=== PATIENT | male | born 1965 | race Caucasian/White ===

== ENCOUNTER → 2020-05-19 | Outpatient (CLI) | payer BC, OTHER | END | disposition home or self-care (01) | LOC: XYW 10:24 | PROVIDERS: ATTEND Internal Medicine | DX: I08.0 Rheumatic disorders of both mitral and aortic valves (principal) | CPT/HCPCS: 93306 ==

== ENCOUNTER → 2020-08-13 | Outpatient (CLI) | payer BC ==
[2020-08-13 11:02] LABS: Free T4 (Free Thyroxine) 0.81 ng/dL (0.89-1.76); Prostate Specific Antigen 1.27 ng/mL (0.0-4.0)
[2020-08-13 11:03] LABS: Free T3 3.51 pg/mL (2.3-4.2)
== END | disposition home or self-care (01) ==
LOC: LAB 07:30
PROVIDERS: ATTEND Internal Medicine
DX: Z12.5 Encounter for screening for malignant neoplasm of prostate (principal); I10 Essential (primary) hypertension; E78.5 Hyperlipidemia, unspecified; R00.2 Palpitations; R79.89 Other specified abnormal findings of blood chemistry
CPT/HCPCS: 36415; 84153; 84439; 84443; 84481; 85652; 86141

== ENCOUNTER → 2020-09-02 | Outpatient (CLI) | payer BC ==
[~2020-09-02] VITALS: Ht 165.1 cm; Wt 97.5 kg
[~2020-09-02] MED LIST: ADENOSINE 82 MG in GIVE UN-DILUTED 0 ML IV STA; ASPI-543 PO; LISI-275 PO; OMEP20TA PO; ROSU20TA14 PO
== END | disposition home or self-care (01) ==
LOC: XY 10:35
PROVIDERS: ATTEND Internal Medicine
DX: I10 Essential (primary) hypertension (principal)
CPT/HCPCS: 78452; 93017; A9500; J0153

== ENCOUNTER → 2020-09-17 | Day surgery (SDC) | payer BC ==
[2020-09-13 14:50] LABS: Basophils # (auto) 0.1 10 ^3/uL (0-0.2); Basophils % (auto) 0.8 % (0.0-2.0); Eosinophils # (auto) 0.2 10 ^3/uL (0-0.8); Eosinophils % (auto) 2.6 % (0.0-7.0); Hemoglobin 14.9 g/dL (13.5-17.5); Lymphocytes # (auto) 1.8 10 ^3/uL (0.4-5.4); Lymphocytes % (auto) 24.4 % (10.0-50.0); Mean Corpuscular Hemoglobin 30.9 pg (28.0-32.0); Mean Corpuscular Hgb Conc. 33.9 g/dL (32.0-36.0); Mean Corpuscular Volume 91.2 fL (80.0-100.0); Monocytes # (auto) 0.7 10 ^3/uL (0-1.3); Neutrophils # (auto) 4.8 10 ^3/uL (1.6-8.6); Neutrophils % (auto) 63.2 % (37.0-80.0); Nucleated Red Blood Cells % 0.1 %; Platelet Count (auto) 241 10^3/uL (140-450); Red Blood Cells 4.82 10^6/uL (4.5-5.90); Red Cell Distribution Width 12.9 % (11.8-14.3); White Blood Cell 7.6 10^3/uL (4.4-10.8)
[2020-09-13 15:02] LABS: INR 1.03 (0.9-1.15); Partial Thromboplastin Time 28.5 sec (23.0-31.2)
[~2020-09-17] VITALS: Ht 165.1 cm; Wt 97.5 kg
[~2020-09-17] MED LIST changes: -ADENOSINE 82 MG in GIVE UN-DILUTED 0 ML IV STA; +SODIUM CHLORIDE LOCK 10 ML ONE; +diphenhdrAMINE HCL 50 MG/1 ML VL ONE
[2020-09-17] MEDS: fentaNYL CITRATE 100 MCG/2 ML VL ONE ×3 (14:09→14:15)
[2020-09-17] MEDS: MIDAZOLAM HCL 5 MG/ML-1ML VIAL ONE ×3 (14:09→14:15)
[2020-09-17 15:11] VITALS: BP 152/95
== END | disposition home or self-care (01) ==
LOC: GI 11:15
PROVIDERS: ATTEND Internal Medicine Gastroenterology
DX: R19.4 Change in bowel habit (principal); K57.30 Diverticulosis of large intestine without perforation or abscess without bleeding; K64.8 Other hemorrhoids; K21.9 Gastro-esophageal reflux disease without esophagitis; E66.9 Obesity, unspecified; Z68.35 Body mass index [BMI] 35.0-35.9, adult; Z20.828 Contact with and (suspected) exposure to other viral communicable diseases; Z79.82 Long term (current) use of aspirin; Z79.899 Other long term (current) drug therapy; Z88.0 Allergy status to penicillin; Z98.52 Vasectomy status
CPT/HCPCS: 36415; 45378; 85025; 85610; 85730; J1200; J2250; J3010; J7030; U0003; 99152

== ENCOUNTER → 2022-10-17 | Outpatient (CLI) | payer BC ==
[~2022-10-17] MED LIST changes: -SODIUM CHLORIDE LOCK 10 ML ONE; -diphenhdrAMINE HCL 50 MG/1 ML VL ONE
== END | disposition home or self-care (01) ==
LOC: LAB 09:55
PROVIDERS: ATTEND Internal Medicine
DX: M25.561 Pain in right knee (principal)
CPT/HCPCS: 36415; 84550; 85652

== ENCOUNTER → 2023-04-04 | Outpatient (CLI) | payer BC ==
[2023-04-04 08:24] LABS: Uric Acid 7.2 mg/dL (3.5-7.2)
== END | disposition home or self-care (01) ==
LOC: LAB 07:02
PROVIDERS: ATTEND Internal Medicine
DX: M25.561 Pain in right knee (principal); E78.5 Hyperlipidemia, unspecified
CPT/HCPCS: 36415; 80061; 82306; 84550

== ENCOUNTER → 2023-06-01 | Outpatient (CLI) | payer BC | END | disposition home or self-care (01) | LOC: LAB 10:25 | PROVIDERS: ATTEND Family Medicine | DX: L98.8 Other specified disorders of the skin and subcutaneous tissue (principal) | CPT/HCPCS: 88302 ==

== ENCOUNTER → 2024-09-05 | Outpatient (CLI) | payer BC ==
[2024-09-05 08:59] LABS: Basophils # (auto) 0.1 10 ^3/uL (0-0.2); Basophils % (auto) 0.8 % (0.0-2.0); Eosinophils # (auto) 0.2 10 ^3/uL (0-0.8); Eosinophils % (auto) 3.1 % (0.0-7.0); Hematocrit 45.3 % (41.0-53.0); Hemoglobin 16.2 g/dL (13.5-17.5); Lymphocytes # (auto) 1.8 10 ^3/uL (0.4-5.4); Lymphocytes % (auto) 24.8 % (10.0-50.0); Mean Corpuscular Hemoglobin 32.4 pg (28.0-32.0); Mean Corpuscular Hgb Conc. 35.7 g/dL (32.0-36.0); Mean Corpuscular Volume 90.6 fL (80.0-100.0); Monocytes # (auto) 0.6 10 ^3/uL (0-1.3); Monocytes % (auto) 8.9 % (0.0-12.0); Neutrophils # (auto) 4.6 10 ^3/uL (1.6-8.6); Neutrophils % (auto) 62.4 % (37.0-80.0); Platelet Count (auto) 277 10^3/uL (140-450); Red Cell Distribution Width 13.2 % (11.8-14.3); White Blood Cell 7.3 10^3/uL (4.4-10.8)
[2024-09-05 09:33] LABS: Erythrocyte Sedimentation Rate 9 mm/hr (0-20)
[2024-09-05 09:47] LABS: Alanine Aminotransferase 33 U/L (7-40); Albumin 4.5 g/dL (3.2-4.8); Alkaline Phosphatase 67 U/L (46-116); Anion Gap 8 (5-15); Aspartate Aminotransferase 15 U/L (13-40); Blood Urea Nitrogen 15 mg/dL (9-23); CRP High Sensitivity 0.52 mg/dL (<1.0); Carbon Dioxide 29 mmol/L (20-31); Chloride 105 mmol/L (98-107); Glucose 112 mg/dL (74-106); LDL Cholesterol 69 mg/dL (< 100); Potassium 3.6 mmol/L (3.5-5.1); Sodium 142 mmol/L (136-145); Triglycerides 141 mg/dL (< 150)
[2024-09-05 09:48] LABS: Bilirubin, Total 0.6 mg/dL (0.2-1.0); Cholesterol 118 mg/dL (< 200); HDL Cholesterol 35 mg/dL (40-59); Total Protein 7.3 g/dL (5.7-8.2)
[2024-09-05 10:56] LABS: Prostate Specific Antigen 1.77 ng/mL (0.0-4.0)
[2024-09-05 11:01] LABS: Folate (Folic Acid) 22.14 ng/mL (>5.38)
== END | disposition home or self-care (01) ==
LOC: LAB 08:11
PROVIDERS: ATTEND Internal Medicine
DX: E55.9 Vitamin D deficiency, unspecified (principal); M10.9 Gout, unspecified; E78.5 Hyperlipidemia, unspecified; I10 Essential (primary) hypertension; R31.9 Hematuria, unspecified
CPT/HCPCS: 36415; 80053; 80061; 82306; 82607; 82746; 83036; 84153; 84207; 84403; 84443; 85025; 85652; 86141

== ENCOUNTER 2024-10-28 07:36 | Day surgery (SDC) | payer BC ==
[2024-10-21 11:17] LABS: Urine Bacteria None Seen /hpf (None Seen)
[2024-10-21 11:49] LABS: Alanine Aminotransferase 40 U/L (7-40); Albumin 4.4 g/dL (3.2-4.8); Alkaline Phosphatase 71 U/L (46-116); Anion Gap 6 (5-15); Aspartate Aminotransferase 18 U/L (13-40); BUN/Creatinine Ratio 11.7 (10.0-20.0); Blood Urea Nitrogen 13 mg/dL (9-23); Calcium 9.7 mg/dL (8.7-10.4); Carbon Dioxide 30 mmol/L (20-31); Chloride 105 mmol/L (98-107); Glucose 103 mg/dL (74-106); INR 1.06 (0.9-1.15); Partial Thromboplastin Time 29.4 SEC (24.5-34.5); Potassium 3.6 mmol/L (3.5-5.1); Prothrombin Time 11.2 sec (9.3-11.8); Sodium 141 mmol/L (136-145)
[2024-10-21 11:50] LABS: Bilirubin, Total 0.5 mg/dL (0.2-1.0); Total Protein 7.1 g/dL (5.7-8.2)
[2024-10-21 12:01] LABS: Basophils # (auto) 0.1 10 ^3/uL (0-0.2); Basophils % (auto) 0.7 % (0.0-2.0); Eosinophils # (auto) 0.1 10 ^3/uL (0-0.8); Eosinophils % (auto) 1.8 % (0.0-7.0); Hematocrit 44.9 % (41.0-53.0); Hemoglobin 15.6 g/dL (13.5-17.5); Lymphocytes # (auto) 1.8 10 ^3/uL (0.4-5.4); Lymphocytes % (auto) 23.5 % (10.0-50.0); Mean Corpuscular Hemoglobin 31.5 pg (28.0-32.0); Mean Corpuscular Hgb Conc. 34.7 g/dL (32.0-36.0); Mean Corpuscular Volume 90.5 fL (80.0-100.0); Monocytes # (auto) 0.8 10 ^3/uL (0-1.3); Monocytes % (auto) 10.1 % (0.0-12.0); Neutrophils # (auto) 4.9 10 ^3/uL (1.6-8.6); Neutrophils % (auto) 63.9 % (37.0-80.0); Nucleated Red Blood Cells % 0.1 %; Platelet Count (auto) 302 10^3/uL (140-450); Red Blood Cells 4.95 10^6/uL (4.5-5.90); Red Cell Distribution Width 12.7 % (11.8-14.3); White Blood Cell 7.7 10^3/uL (4.4-10.8)
[2024-10-21 12:32] LABS: Urine Blood Negative /uL (Negative); Urine Clarity Clear (Clear); Urine Color Colorless (Yellow); Urine Protein, UAD Negative (Negative); Urine Specific Gravity 1.008 (1.001-1.035); Urine Urobilinogen Normal (Negative); Urine WBC 3 /hpf (0 - 3)
[~2024-10-28] VITALS: Ht 165.1 cm; Wt 104.3 kg
[~2024-10-28 07:36] MED LIST changes: +HYDR25TA5 PO; -LISI-275 PO; -OMEP20TA PO; +VALS1TAB56 PO
[2024-10-28] MEDS ORDERED: CIPROFLOXACIN 400MG/200ML 200 ML IV ONE (07:54)
[2024-10-28] MEDS ORDERED: fentaNYL CITRATE 100 MCG/2 ML VL ONE (09:28)
[2024-10-28] MEDS ORDERED: PROPOFOL 10 MG/ML 20 ML IV ONE (09:28)
[2024-10-28] MEDS ORDERED: MEPERIDINE HCL (25 MG/ML) 1ML VIAL ONE ×2 (10:00→10:03)
[2024-10-28] MEDS ORDERED: ONDANSETRON HCL 4 MG/2 ML VIAL ONE (10:01)
[2024-10-28] MEDS ORDERED: DexAMETHasone SOD PHOS 10MG/1ML VIAL INJ ONE (10:01)
[2024-10-28 10:41] VITALS: PULSE 78; RESP 16; TEMP 98.2; O2SAT 91
[2024-10-28] MEDS ORDERED: MEPERIDINE HCL (25 MG/ML) 1ML VIAL IV PRN (10:45)
[2024-10-28] MEDS ORDERED: ONDANSETRON HCL 4 MG/2 ML VIAL IV ONE (10:45)
--- NOTE | 2024-10-28 10:53 | DVHDS2 ---
New Physician D'charge PN Admitting Diagnosis Admitting Diagnosis Gross hematuria Discharge Diagnosis BPH with median lobe enlargement Operations or Procedures Trans urethral resection of median lobe prostate Reason(s) For Hospitalization Surgery Treatment Plan Discharge Condition of Discharge Good Disposition Home Discharge Instructions Diet: Regular Activity: Light activity Activity comment: Linares catheter management Medications: Given Follow Up Care Follow Up/Referral: Voiding trial on postop day 1. Discharge Statement: "Patient was advised to return to the ER or call 911 if any headaches, dizziness, shortness of breath, chest pain, abdominal pain, bleeding, fevers, or worsening of medical condition. Patient was counseled about treatment plan, medications, possible side effects, patientverbalized understanding. All questions were answered to the best of my ability. This discharge took greater then 30 minutes in planning, reviewing documentation, counseling the patient, and discussing with other team members." BEBO CARDENAS MD Oct 28, 2024 10:53
[2024-10-28] MEDS: HYDROmorphone HCL 2 MG/ML VL/or syr IV PRN (11:44)
[2024-10-28] MEDS: ACETAMINOPHEN IV 1000 MG/100ML (10MG/ML) IV PRN (12:04)
[2024-10-28 12:05] VITALS: BP 108/68; PULSE 65; RESP 17; O2SAT 97
== END 2024-10-28 12:35 | disposition home or self-care (01) ==
LOC: SUR 07:36
PROVIDERS: ATTEND Urology
DX: N40.1 Benign prostatic hyperplasia with lower urinary tract symptoms (principal); N13.8 Other obstructive and reflux uropathy; I10 Essential (primary) hypertension; E78.5 Hyperlipidemia, unspecified; E66.9 Obesity, unspecified; Z68.38 Body mass index [BMI] 38.0-38.9, adult; Z79.899 Other long term (current) drug therapy; Z98.52 Vasectomy status; Z88.0 Allergy status to penicillin
CPT/HCPCS: 36415; 52601; 80053; 81001; 85025; 85610; 85730; 87086; 88305; C1769; J0744; J1100; J1171; J2175; J2405; J2704; J3010; J0131

== ENCOUNTER 2024-10-28 17:15 | Inpatient (IN) | payer BC ==
[~2024-10-28] VITALS: Ht 165.1 cm; Wt 106.7 kg
[2024-10-28 18:40] LABS: Basophils # (auto) 0 10 ^3/uL (0-0.2); Basophils % (auto) 0.2 % (0.0-2.0); Eosinophils # (auto) 0 10 ^3/uL (0-0.8); Hematocrit 43.8 % (41.0-53.0); Hemoglobin 15.5 g/dL (13.5-17.5); Lymphocytes # (auto) 0.5 10 ^3/uL (0.4-5.4); Lymphocytes % (auto) 4.5 % (10.0-50.0); Mean Corpuscular Hemoglobin 32.1 pg (28.0-32.0); Mean Corpuscular Hgb Conc. 35.3 g/dL (32.0-36.0); Mean Corpuscular Volume 90.9 fL (80.0-100.0); Monocytes # (auto) 0.1 10 ^3/uL (0-1.3); Monocytes % (auto) 1.4 % (0.0-12.0); Neutrophils # (auto) 9.4 10 ^3/uL (1.6-8.6); Neutrophils % (auto) 93.9 % (37.0-80.0); Nucleated Red Blood Cells % 0.1 %; Platelet Count (auto) 290 10^3/uL (140-450); Red Blood Cells 4.82 10^6/uL (4.5-5.90); Red Cell Distribution Width 12.7 % (11.8-14.3); White Blood Cell 10.1 10^3/uL (4.4-10.8)
[2024-10-28 18:56] LABS: Chloride 100 mmol/L (98-107); Potassium 3.6 mmol/L (3.5-5.1)
[2024-10-28 18:57] LABS: Anion Gap 7 (5-15); Calcium 9.8 mg/dL (8.7-10.4); Carbon Dioxide 29 mmol/L (20-31)
[2024-10-28 19:02] LABS: BUN/Creatinine Ratio 12.8 (10.0-20.0); Blood Urea Nitrogen 17 mg/dL (9-23)
[2024-10-28 19:03] LABS: Glucose 149 mg/dL (74-106); Sodium 136 mmol/L (136-145)
--- NOTE | 2024-10-28 19:26 | DVHHP2 ---
History of Present Illness Reason for Visit: Hematuria History of Present Illness 59-year-old male presents for evaluation of hematuria. Patient is status post cystoscopy with TURP with Dr. Lambert today 02/16. Patient was sent home in stable condition with a Linares catheter. He returns with complaints of excruciating pain on his penis and has noticed bloody urine. Denies fever or chills. No dizziness or shortness for breath. No cardiac complaints. Past Medical History Hypertension, BPH and dyslipidemia Past Surgical History Denies Family History Noncontributory Smoke: No ALCOHOL: none Drugs: None Lives: with Family Review of Systems Review of Systems Review of systems are currently negative otherwise addressed in HPI. Allergies: Coded Allergies: Penicillins (Verified Allergy, Unknown, 10/21/24) Exam Vital Signs Vital Signs Date Time Temp Pulse Resp B/P (MAP) Pulse Ox O2 Delivery O2 Flow Rate FiO2 10/28/24 18:29 Room Air* 0 21 Exam Gen: 59-year-old male in mild distress. Skin: Warm, dry, normal color and texture, no rash. HEENT: Normocephalic atraumatic, mucous membranes moist and pink. Neck: Cervical and supraclavicular nodes normal without enlargement, trachea is midline, thyroid gland is normal without masses. Pulmonary: Clear to auscultation and percussion bilaterally. Cardiac: Regular rate and rhythm. No murmur : Linares catheter with bloody urine Abdomen: Soft, nontender, nondistended, bowel sounds present all 4 quadrants, no guarding, no rigidity, no organomegaly. Extremities: No cyanosis, clubbing, no edema Neuro: Cranial nerves II through XII grossly intact, normal affect and speech, no focal motor deficits. Labs/Xrays Labs Test 10/28/24 18:30 Range/Units White Blood Count 10.1 4.4-10.8 10^3/uL Red Blood Count 4.82 4.5-5.90 10^6/uL Hemoglobin 15.5 13.5-17.5 g/dL Hematocrit 43.8 41.0-53.0 % Mean Corpuscular Volume 90.9 80.0-100.0 fL Mean Corpuscular Hemoglobin 32.1 H 28.0-32.0 pg Mean Corpuscular Hemoglobin Concent 35.3 32.0-36.0 g/dL Red Cell Distribution Width 12.7 11.8-14.3 % Platelet Count 290 140-450 10^3/uL Mean Platelet Volume 6.9 6.9-10.8 fL Neutrophils (%) (Auto) 93.9 H 37.0-80.0 % Lymphocytes (%) (Auto) 4.5 L 10.0-50.0 % Monocytes (%) (Auto) 1.4 0.0-12.0 % Eosinophils (%) (Auto) 0.0 0.0-7.0 % Basophils (%) (Auto) 0.2 0.0-2.0 % Neutrophils # (Auto) 9.4 H 1.6-8.6 10 ^3/uL Lymphocytes # (Auto) 0.5 0.4-5.4 10 ^3/uL Monocytes # (Auto) 0.1 0-1.3 10 ^3/uL Eosinophils # (Auto) 0 0-0.8 10 ^3/uL Basophils # (Auto) 0 0-0.2 10 ^3/uL Nucleated Red Blood Cells 0.1 % Sodium Level 136 136-145 mmol/L Potassium Level 3.6 3.5-5.1 mmol/L Chloride Level 100 98-107 mmol/L Carbon Dioxide Level 29 20-31 mmol/L Anion Gap 7 5-15 Blood Urea Nitrogen 17 9-23 mg/dL Creatinine 1.33 H 0.700-1.30 mg/dL Glomerular Filtration Rate Calc 62 >90 mL/min BUN/Creatinine Ratio 12.8 10.0-20.0 Serum Glucose 149 H 74-106 mg/dL Calcium Level 9.8 8.7-10.4 mg/dL Assessment/Plan Assessment/Plan Assessment Hematuria Status post cystoscopy with TURP Hypertension Dyslipidemia Plan Admit the patient to [facility] to the hospitalist Urology consultation, start CBI as recommended by Dr. Lambert Monitor H&H Pain management Resume home medications Continue treatment per orders. Plan discussed with: Patient Date of Service: Oct 28, 2024 Billing Provider: LONNIE BARRON Common Visit Codes: 24425-[id number] INP/OBS CARE (HIGH) LONNIE BARRON Oct 28, 2024 19:26
[2024-10-28] MEDS ORDERED: ONDANSETRON HCL 4 MG/2 ML VIAL IV PRN (19:30)
[2024-10-28] MEDS ORDERED: MORPHINE SULFATE INJ 2 MG/ml SYRG IV PRN (19:30)
[2024-10-28] MEDS ORDERED: TEMAZEPAM 15 MG CAP PO PRN (19:30)
[2024-10-28 21:00] VITALS: BP 133/72; PULSE 94; RESP 20; TEMP 97.7; O2SAT 91
[2024-10-28] MEDS: ATORVASTATIN 20 MG TAB PO SCH (22:00)
[2024-10-28] MEDS: ACETAMINOPHEN 325 MG TAB PO PRN (22:26)
[2024-10-29] VITALS (7 sets, daily range): BP systolic 119–141; BP diastolic 67–73; PULSE 68–98; RESP 16–20; TEMP 97.5–98.1; O2SAT 92–95
[2024-10-29] MEDS: HYDROcodone-ACET 5/325MG TAB PO PRN (04:09)
[2024-10-29 06:50] LABS: Basophils # (auto) 0 10 ^3/uL (0-0.2); Eosinophils # (auto) 0 10 ^3/uL (0-0.8); Hematocrit 41.5 % (41.0-53.0); Hemoglobin 14.5 g/dL (13.5-17.5); Lymphocytes % (auto) 6.2 % (10.0-50.0); Mean Corpuscular Hemoglobin 31.6 pg (28.0-32.0); Mean Corpuscular Hgb Conc. 34.9 g/dL (32.0-36.0); Mean Corpuscular Volume 90.6 fL (80.0-100.0); Monocytes % (auto) 6.4 % (0.0-12.0); Neutrophils # (auto) 13.9 10 ^3/uL (1.6-8.6); Neutrophils % (auto) 87.4 % (37.0-80.0); Platelet Count (auto) 316 10^3/uL (140-450); Red Blood Cells 4.58 10^6/uL (4.5-5.90); Red Cell Distribution Width 12.4 % (11.8-14.3); White Blood Cell 15.9 10^3/uL (4.4-10.8)
[2024-10-29 06:58] LABS: Anion Gap 9 (5-15); Calcium 9.7 mg/dL (8.7-10.4); Carbon Dioxide 27 mmol/L (20-31); Chloride 99 mmol/L (98-107); Potassium 3.6 mmol/L (3.5-5.1)
[2024-10-29 07:04] LABS: BUN/Creatinine Ratio 14.9 (10.0-20.0); Blood Urea Nitrogen 17 mg/dL (9-23)
[2024-10-29 07:08] LABS: Glucose 144 mg/dL (74-106); Sodium 135 mmol/L (136-145)
[2024-10-29] MEDS: VALSARTAN 80 MG TAB PO SCH (10:00)
[2024-10-29] MEDS: hydroCHLOROthiazide 25 MG TAB PO SCH (10:00)
--- NOTE | 2024-10-29 11:05 | DVHPN2 ---
Subjective Seen and examined at bedside, patient reports to be feeling better urine is clear however patient's WBC count jumped to 15.9 therefore we will give IV antibiotics and monitor. DC Linares catheter. Changes from previous H/P or p: No Changes Objective Vitals Vital Signs Date Time Temp Pulse Resp B/P (MAP) Pulse Ox O2 Delivery O2 Flow Rate FiO2 10/29/24 09:22 97.6 94 16 139/67 (91) 95 97.6 10/28/24 20:00 Room Air* 0 21 Intake/Output Intake and Output 10/29/24 06:59 Intake Total 1010 ml Output Total 8400 ml Balance -7390 ml Intake Oral 1010 ml Output Urine Total 8400 ml General Appearance: Alert, Oriented X3, Cooperative HEENT: Atraumatic, PERRLA Lungs: Clear to auscultation Cardiovascular: Regular rate, Normal S1, Normal S2 Abdomen: Normal bowel sounds, Soft Psych/Mental Status: Mental status NL Medications Current Medications Medications Dose Ordered Sig/Ary Route Start Time Stop Time Status Last Admin Dose Admin Hydrochlorothiazide 25 mg DAILY PO 10/29/24 10:00 Atorvastatin Calcium 20 mg HS PO 10/28/24 22:00 Valsartan 40 mg DAILY PO 10/29/24 10:00 Acetaminophen/ Hydrocodone Bitart 1 tab Q4HP PRN PO 10/28/24 19:30 10/29/24 04:09 1 TAB Temazepam 15 mg QHSP PRN PO 10/28/24 19:30 Ondansetron HCl 4 mg Q4HP PRN IV 10/28/24 19:30 Acetaminophen 650 mg Q6HP PRN PO 10/28/24 19:30 10/28/24 22:26 650 MG Morphine Sulfate 2 mg Q6HPRN PRN IV 10/28/24 19:30 Ciprofloxacin 200 ml @ 200 mls/hr Q12HR IV 10/29/24 22:00 UNV Laboratory Results Laboratory Tests 10/29/24 06:03 Chemistry Test 10/28/24 18:30 10/29/24 06:03 Calcium Level 9.8 mg/dL (8.7-10.4) 9.7 mg/dL (8.7-10.4) Assessment/Plan Assessment/Plan Hematuria - Resolved Status post cystoscopy with TURP Hypertension - Monitor and adjust meds Dyslipidemia Goals of care- FULL CODE Plan discussed with: Patient My Orders Orders - JOSE ALBERTO HUMPHREY MD Procedure Category Date Status Time Regular Diet DIET 10/28/24 Transmitted Dinner Ciprofloxacin PHA 10/29/24 Logged 400mg/200ml (Cipro Iv) 11:00 Ciprofloxacin PHA 10/29/24 Logged 400mg/200ml (Cipro Iv) 22:00 Complete Blood Count LAB 10/30/24 Verified 04:00 Pharmacy [facility] 10/29/24 In Process Clarification: 10:56 Discontinue Linares SUHAS 10/29/24 Verified Catheter 11:03 Date of Service: Oct 29, 2024 Billing Provider: JOSE ALBERTO HUMPHREY MD Common Visit Codes: [id number] INP/OBS CARE(HIGH) JOSE ALBERTO HUMPHREY MD Oct 29, 2024 11:05
--- NOTE | 2024-10-29 11:29 | DVHINCON2 ---
Date of service: Oct 29, 2024 Referring Physician Hospitalist Reason for Consultation Patient admitted to [facility] s/p TURP yesterday due to persistent hematuria requiring CBI and pain from the urethral catheter. History of Present Illness POD#1 s/p TURP Urine clear Family History: Arthritis G8 MOTHER Allergies: Coded Allergies: Penicillins (Verified Allergy, Unknown, 10/21/24) Home Meds Reported Medications Valsartan (Valsartan) 40 Mg Tab, 40 MG PO, TAB 10/21/24 Hctz (Hydrochlorothiazide) 25 Mg Tab, 25 MG PO, TAB 10/21/24 Rosuvastatin Calcium (Crestor) 20 Mg Tab, 1 TAB PO DAILY, #30 TAB 5 Refills 09/13/20 Aspirin (Aspir-Low) 81 Mg Tab, 81 MG PO DAILY for 30 Days, MG 09/13/20 Current Medications Current Medications Medications (Trade) Dose Ordered Sig/Ary Route PRN Reason Start Time Stop Time Status Last Admin Hydrochlorothiazide (hydroCHLOROthiazide TABLET) 25 mg DAILY PO 10/29/24 10:00 Atorvastatin Calcium (Lipitor) 20 mg HS PO 10/28/24 22:00 Valsartan (Diovan) 40 mg DAILY PO 10/29/24 10:00 Acetaminophen/ Hydrocodone Bitart ([place] 5/325MG Tab) 1 tab Q4HP PRN PO MODERATE PAIN (4-6 PAIN SCALE) 10/28/24 19:30 10/29/24 04:09 Temazepam (Restoril) 15 mg QHSP PRN PO FOR INSOMNIA 10/28/24 19:30 Ondansetron HCl (Zofran) 4 mg Q4HP PRN IV NAUSEA / VOMITING 10/28/24 19:30 Acetaminophen (Tylenol Tablet) 650 mg Q6HP PRN PO PAIN SCALE 1-3 OR TEMP>100.4 10/28/24 19:30 10/28/24 22:26 Morphine Sulfate 2 mg Q6HPRN PRN IV SEVERE PAIN (7-10 PAIN SCALE) 10/28/24 19:30 Ciprofloxacin 200 ml @ 200 mls/hr Q12HR IV 10/29/24 22:00 UNV Vital Signs Vital Signs Date Time Temp Pulse Resp B/P (MAP) Pulse Ox O2 Delivery O2 Flow Rate FiO2 10/29/24 10:00 139/67 10/29/24 09:22 97.6 94 16 95 97.6 10/29/24 08:00 Room Air* 0 21 Labs/Diagnostic Data Labs Test 10/29/24 06:03 Range/Units White Blood Count 15.9 #H 4.4-10.8 10^3/uL Red Blood Count 4.58 4.5-5.90 10^6/uL Hemoglobin 14.5 13.5-17.5 g/dL Hematocrit 41.5 41.0-53.0 % Mean Corpuscular Volume 90.6 80.0-100.0 fL Mean Corpuscular Hemoglobin 31.6 28.0-32.0 pg Mean Corpuscular Hemoglobin Concent 34.9 32.0-36.0 g/dL Red Cell Distribution Width 12.4 11.8-14.3 % Platelet Count 316 140-450 10^3/uL Mean Platelet Volume 7.1 6.9-10.8 fL Neutrophils (%) (Auto) 87.4 H 37.0-80.0 % Lymphocytes (%) (Auto) 6.2 L 10.0-50.0 % Monocytes (%) (Auto) 6.4 0.0-12.0 % Eosinophils (%) (Auto) 0.0 0.0-7.0 % Basophils (%) (Auto) 0.0 0.0-2.0 % Neutrophils # (Auto) 13.9 H 1.6-8.6 10 ^3/uL Lymphocytes # (Auto) 1.0 0.4-5.4 10 ^3/uL Monocytes # (Auto) 1.0 0-1.3 10 ^3/uL Eosinophils # (Auto) 0 0-0.8 10 ^3/uL Basophils # (Auto) 0 0-0.2 10 ^3/uL Nucleated Red Blood Cells 0.0 % Sodium Level 135 L 136-145 mmol/L Potassium Level 3.6 3.5-5.1 mmol/L Chloride Level 99 98-107 mmol/L Carbon Dioxide Level 27 20-31 mmol/L Anion Gap 9 5-15 Blood Urea Nitrogen 17 9-23 mg/dL Creatinine 1.14 0.700-1.30 mg/dL Glomerular Filtration Rate Calc 75 >90 mL/min BUN/Creatinine Ratio 14.9 10.0-20.0 Serum Glucose 144 H 74-106 mg/dL Calcium Level 9.7 8.7-10.4 mg/dL Assessment BPH, s/p TURP Plan/Recommendation Urine clear D/c Linares Discharge home Plan discussed with: Patient, Spouse BEBO CARDENAS MD Oct 29, 2024 11:29
[2024-10-29] MEDS: CIPROFLOXACIN 400MG/200ML 200 ML IV ONE (13:40)
[2024-10-29] MEDS: CIPROFLOXACIN 400MG/200ML 200 ML IV SCH (21:38)
[2024-10-30 01:00] VITALS: BP 130/71; PULSE 68; RESP 20; TEMP 97.8; O2SAT 95
[2024-10-30 05:00] VITALS: BP 137/77; PULSE 79; RESP 20; TEMP 97.5; O2SAT 96
[2024-10-30 07:14] LABS: Basophils # (auto) 0 10 ^3/uL (0-0.2); Basophils % (auto) 0.4 % (0.0-2.0); Eosinophils # (auto) 0 10 ^3/uL (0-0.8); Eosinophils % (auto) 0.4 % (0.0-7.0); Hematocrit 41.3 % (41.0-53.0); Hemoglobin 14.4 g/dL (13.5-17.5); Lymphocytes # (auto) 2.3 10 ^3/uL (0.4-5.4); Lymphocytes % (auto) 20.4 % (10.0-50.0); Mean Corpuscular Hemoglobin 31.7 pg (28.0-32.0); Mean Corpuscular Hgb Conc. 34.9 g/dL (32.0-36.0); Monocytes # (auto) 0.9 10 ^3/uL (0-1.3); Monocytes % (auto) 8.2 % (0.0-12.0); Neutrophils % (auto) 70.6 % (37.0-80.0); Nucleated Red Blood Cells % 0.1 %; Platelet Count (auto) 292 10^3/uL (140-450); Red Blood Cells 4.54 10^6/uL (4.5-5.90); Red Cell Distribution Width 12.6 % (11.8-14.3); White Blood Cell 11.3 10^3/uL (4.4-10.8)
[2024-10-30 13:05] VITALS: BP 134/78; PULSE 80; RESP 17; TEMP 98.3; O2SAT 95
[2024-10-30 14:19] VITALS: BP 134/78; PULSE 80; RESP 17; TEMP 98.3; O2SAT 95
--- NOTE | 2024-10-30 15:18 | DVH ---
CLINICAL INFORMATION: 59 years old, Male; osteoarthritis. TECHNIQUE: 3 views of the right knee were obtained. COMPARISON: None FINDINGS: No acute fracture or dislocation. Kbhs-oa-ocmawujy joint space narrowing in the medial and patellofemoral compartments. Mild spurring of the superior pole of the patella. No focal soft tissue swelling. Small joint effusion. IMPRESSION: 1. No evidence of acute bony abnormality. 2. Gjxp-dw-[id number] arthritic changes as described above. 3. Small joint effusion.
[2024-10-30] MEDS ORDERED: CIP500T PO (16:01)
[2024-10-30] MEDS ORDERED: TAMS-35 PO (16:01)
--- NOTE | 2024-10-30 16:04 | DVHDS2 ---
Discharge Summary Date of Admission Oct 28, 2024 at 17:28 Date of Discharge: Oct 30, 2024 Labs/Diagnostic Data: Laboratory Results Test 10/30/24 06:15 10/29/24 06:03 White Blood Count 11.3 10^3/uL (4.4-10.8) Red Blood Count 4.54 10^6/uL (4.5-5.90) Hemoglobin 14.4 g/dL (13.5-17.5) Hematocrit 41.3 % (41.0-53.0) Mean Corpuscular Volume 91.0 fL (80.0-100.0) Mean Corpuscular Hemoglobin 31.7 pg (28.0-32.0) Mean Corpuscular Hemoglobin Concent 34.9 g/dL (32.0-36.0) Red Cell Distribution Width 12.6 % (11.8-14.3) Platelet Count 292 10^3/uL (140-450) Mean Platelet Volume 7.1 fL (6.9-10.8) Neutrophils (%) (Auto) 70.6 % (37.0-80.0) Lymphocytes (%) (Auto) 20.4 % (10.0-50.0) Monocytes (%) (Auto) 8.2 % (0.0-12.0) Eosinophils (%) (Auto) 0.4 % (0.0-7.0) Basophils (%) (Auto) 0.4 % (0.0-2.0) Neutrophils # (Auto) 8.0 10 ^3/uL (1.6-8.6) Lymphocytes # (Auto) 2.3 10 ^3/uL (0.4-5.4) Monocytes # (Auto) 0.9 10 ^3/uL (0-1.3) Eosinophils # (Auto) 0 10 ^3/uL (0-0.8) Basophils # (Auto) 0 10 ^3/uL (0-0.2) Nucleated Red Blood Cells 0.1 % Sodium Level 135 mmol/L (136-145) Potassium Level 3.6 mmol/L (3.5-5.1) Chloride Level 99 mmol/L (98-107) Carbon Dioxide Level 27 mmol/L (20-31) Anion Gap 9 (5-15) Blood Urea Nitrogen 17 mg/dL (9-23) Creatinine 1.14 mg/dL (0.700-1.30) Glomerular Filtration Rate Calc 75 mL/min (>90) BUN/Creatinine Ratio 14.9 (10.0-20.0) Serum Glucose 144 mg/dL (74-106) Calcium Level 9.7 mg/dL (8.7-10.4) Other Laboratory Tests 10/30/24 06:15 10/29/24 06:03 Brief Hx & Hospital Course: Patient admitted to [facility] s/p TURP yesterday due to persistent hematuria requiring CBI and pain from the urethral catheter. Urine has cleared. Patient is c/o of right knee pain, Xrays done. Needs to see ortho clinic as outpatient. Operations or Procedures CLINICAL INFORMATION: 59 years old, Male; osteoarthritis. TECHNIQUE: 3 views of the right knee were obtained. COMPARISON: None FINDINGS: No acute fracture or dislocation. Drrt-ow-dvwztjne joint space narrowing in the medial and patellofemoral compartments. Mild spurring of the superior pole of the patella. No focal soft tissue swelling. Small joint effusion. IMPRESSION: 1. No evidence of acute bony abnormality. 2. Sjxj-bm-pvtthpaj arthritic changes as described above. 3. Small joint effusion. Condition at Discharge: Poor Final Diagnosis/Problems List Hematuria - Resolved Status post cystoscopy with TURP Hypertension - Monitor and adjust meds Dyslipidemia Goals of care- FULL CODE Discharge Disposition: Home Discharge Instruct/Medications Activity: No Restrictions, As Tolerated Follow Up/Referral: pcp ortho urology Medications: see [facility] Discharge Statement: "Patient was advised to return to the ER or call 911 if any headaches, dizziness, shortness of breath, chest pain, abdominal pain, bleeding, fevers, or worsening of medical condition. Patient was counseled about treatment plan, medications, possible side effects, patientverbalized understanding. All questions were answered to the best of my ability. This discharge took greater then 30 minutes in planning, reviewing documentation, counseling the patient, and discussing with other team members." ASSESSMENT ASSESSMENT Assessment s/p TURP Date of Service: Oct 30, 2024 Billing Provider: JOSE ALBERTO HUMPHREY MD Common Visit Codes: 71132-[id number]/[id number] DISCH DAY >30min JOSE ALBERTO HUMPHREY MD Oct 30, 2024 16:04
[2024-10-30 16:46] VITALS: BP 140/79; PULSE 78; RESP 20; TEMP 97.4; O2SAT 94
== END 2024-10-30 18:16 | disposition home or self-care (01) | DRG 696 ==
LOC: CENTRAL 17:28
PROVIDERS: ADMIT Internal Medicine; ATTEND Internal Medicine
DX: R31.9 Hematuria, unspecified (principal); N40.0 Benign prostatic hyperplasia without lower urinary tract symptoms; I10 Essential (primary) hypertension; E78.5 Hyperlipidemia, unspecified; Z90.79 Acquired absence of other genital organ(s); Z88.0 Allergy status to penicillin; Z79.899 Other long term (current) drug therapy
CPT/HCPCS: 36415; 73562; 80048; 85025; G0378